=== PATIENT | female | born 1955 | race Caucasian/White ===

== ENCOUNTER 2017-02-13 09:37 | Outpatient (CLI) | payer MEDICARE, BC ==
[~2017-02-13] VITALS: Ht 162.6 cm; Wt 57.7 kg
[~2017-02-13 09:37] MED LIST: AMBIEN 10MG10 MG PO; AUBAGIO14 MG PO; BUPROPION100 MG PO; IBUPROFEN200 M1 PO; NEURONTIN100 MG/CAP PO; NEURONTIN300 MG/CAP PO; PREDNISONE1 MG PO; PRELIEF333 M1 PO; PREMARIN .3MG0.3 MG; PRINIVIL2.5 MG; PRINZIDE 25 MG-1 TAB PO; PRUNELAX; TRILEPTAL 150M150 MG PO; TRILEPTAL 300M300 MG PO; WELLBUTRIN 100100 MG PO; WELLBUTRIN SR200 MG PO; ZESTRIL 20MG TA20 MG PO; ZOLPIDEM10 MG PO; [UNRECOGNIZED DRUG - OTHER] PO; [UNRECOGNIZED DRUG - OTHER] SQ
[2017-02-13] MEDS ORDERED: COZAAR 25MG25 MG/TAB PO (14:43)
[2017-02-13] MEDS ORDERED: HCTZ 25MG TAB25 MG PO (14:44)
[2017-02-13] MEDS ORDERED: PREMARIN VAG42.5 GM VG (14:44)
[2017-02-13] MEDS ORDERED: MACRODANTIN50 MG/CA1 PO (14:45)
[2017-02-13] MEDS ORDERED: LEVSIN0.125 M1 PO (14:46)
[2017-02-13] MEDS ORDERED: MULTIPLE VITAMI1 CAP PO (14:46)
[2017-02-13] MEDS ORDERED: TYLENOL 8 HR PO (14:47)
[2017-02-13] MEDS ORDERED: LAC-DOSE (14:47)
[2017-02-13] MEDS ORDERED: VITAMIN D1000 IU PO (14:48)
[2017-02-13] MEDS ORDERED: CALCIUM CARBON650 M2 (14:49)
[2017-02-13 14:50] VITALS: BP 125/77; PULSE 84; TEMP 98.2
== END 2017-02-13 16:25 | disposition home or self-care (01) ==
LOC: MC.RAD 09:37 → EUO 09:37 → MC.RAD 09:40 → EUO 16:25
DX: Z12.31 Encounter for screening mammogram for malignant neoplasm of breast (principal); M81.0 Age-related osteoporosis without current pathological fracture
CPT/HCPCS: J3489

== ENCOUNTER → 2018-02-22 | Outpatient (CLI) | payer MEDICARE, BC ==
[~2018-02-22] MED LIST changes: +CALCIUM CARBON650 M2; +COZAAR 25MG25 MG/TAB PO; +HCTZ 25MG TAB25 MG PO; +LAC-DOSE; +LEVSIN0.125 M1 PO; +MACRODANTIN50 MG/CA1 PO; +MULTIPLE VITAMI1 CAP PO; +PREMARIN VAG42.5 GM VG; +TYLENOL 8 HR PO; +VITAMIN D1000 IU PO
== END ==
LOC: MC.RAD 14:07
DX: Z12.31 Encounter for screening mammogram for malignant neoplasm of breast (principal)

== ENCOUNTER 2018-07-17 15:23 | Outpatient (CLI) | payer MEDICARE, BC ==
[~2018-07-17] VITALS: Ht 162.6 cm; Wt 58.7 kg
[2018-07-17 15:46] VITALS: BP 138/74; PULSE 87; TEMP 97.8
== END 2018-07-17 16:50 | disposition home or self-care (01) ==
LOC: EUO 15:23
DX: M81.0 Age-related osteoporosis without current pathological fracture (principal)
CPT/HCPCS: J3489

== ENCOUNTER → 2019-03-13 | Outpatient (CLI) | payer MEDICARE, BC | LOC: MC.RAD 08:54 | DX: Z12.31 Encounter for screening mammogram for malignant neoplasm of breast (principal) ==

== ENCOUNTER → 2020-05-14 | Outpatient (CLI) | payer MEDICARE | LOC: MC.RAD 11:34 | DX: Z12.31 Encounter for screening mammogram for malignant neoplasm of breast (principal) ==

== ENCOUNTER → 2021-05-17 | Outpatient (CLI) | payer OTHER, MEDICARE | LOC: MC.RAD 09:09 | DX: Z12.31 Encounter for screening mammogram for malignant neoplasm of breast (principal) ==

== ENCOUNTER → 2022-05-18 | Outpatient (CLI) | payer OTHER, MEDICARE | LOC: MC.RAD 08:30 | DX: Z12.31 Encounter for screening mammogram for malignant neoplasm of breast (principal); Z80.3 Family history of malignant neoplasm of breast ==

== ENCOUNTER → 2023-06-02 | Outpatient (CLI) | payer MEDICARE | LOC: CANSCHCLI → MC.RAD 09:08 | DX: Z12.31 Encounter for screening mammogram for malignant neoplasm of breast (principal) ==

== ENCOUNTER 2024-01-22 14:12 | Outpatient (RCR) | payer MEDICARE | END 2024-01-28 | disposition home or self-care (01) | LOC: WSPT | DX: M25.561 Pain in right knee (principal) ==

== ENCOUNTER 2024-03-04 22:05 | Emergency (ER) | payer MEDICARE ==
[~2024-03-04] VITALS: Ht 162.6 cm; Wt 59.1 kg
[2024-03-04 22:17] VITALS: TEMP 97.7
[2024-03-04] MEDS ORDERED: Home HYDROcodone/Acetaminophen 7.5/325 MG #4 TABS/PACK PO ONE (22:45)
[2024-03-04] MEDS ORDERED: HYDROcodone/Acetaminophen 10-325 MG TAB PO ONE (22:45)
[2024-03-04] MEDS ORDERED: Ketorolac 15 MG/ML VIAL IM ONE (22:45)
[2024-03-04 23:23] VITALS: BP 175/84; PULSE 81
== END 2024-03-04 23:23 | disposition home or self-care (01) ==
LOC: COL.ER 22:05
DX: G89.18 Other acute postprocedural pain (principal); M25.561 Pain in right knee
CPT/HCPCS: J1885

== ENCOUNTER → 2024-06-03 | Outpatient (CLI) | payer MEDICARE | LOC: MC.RAD 14:26 | DX: Z12.31 Encounter for screening mammogram for malignant neoplasm of breast (principal); Z80.3 Family history of malignant neoplasm of breast ==

== ENCOUNTER 2024-06-26 10:30 | Outpatient (RCR) | payer MEDICARE | END 2024-06-29 | disposition home or self-care (01) | LOC: WSPT | DX: M25.561 Pain in right knee (principal); Z96.651 Presence of right artificial knee joint ==